=== PATIENT | male | born 1995 | race Caucasian/White ===

== ENCOUNTER 2019-07-08 19:31 | Emergency (ER) | payer BC ==
--- OUTSIDE RECORDS SUMMARY | 2019-07-08 19:39 | XMS REPORT | Continuity of Care Document ---
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 Allergies, Adverse Reactions, Alerts Active Allergies Reaction Severity Comments Date Penicillin hives 07/11/2018 Medications Active Medications SIG Qnty Indications Ordering Provider Date Dexcom G5 Mobile use with dexcom 2units Norm Olivas MD 03/14/2019 Transmitter Kit sensors [facility] Dexcom G5 Mobile/G4 dexcom g5, 12units Norm Olivas MD 09/22/2018 [place] Sensor Kit please one sensor every [facility] 7-10 days Freestyle Lite Test test blood sugar 100units Norm Olivas MD 07/11/2018 2 times daily Strips and as needed Humalog for use in 30ml Norm Olivas MD 07/11/2018 100Unit/ML insulin pump, up Solution to 100 units/day Advil 2 tabs by mouth Unknown 200mg Tablets as needed Medications Administered in Office Medication SIG Qnty Indications Ordering Provider Date Technetium TC 99M Terrance Mcdonough M.D., 06/19/2019 Tetrofosmin, Per Unit Dose [facility] Up To 40 Millicuries Injection Technetium TC 99M Terrance Mcdonough M.D., 06/19/2019 Tetrofosmin, Per Unit Dose FACC, FASNC Up To 40 Millicuries Injection Immunizations Description No Information Available Vital Signs Date Vital Result Comment 07/05/2019 4:30pm Height 71 inches 5'11" Weight 175.00 lb w/ o shoes Heart Rate 54 /min BP Systolic Sitting 113 mmHg BP Diastolic Sitting 75 mmHg BMI (Body Mass Index) 24.4 kg/m2 06/23/2019 12:33pm Height 71 inches 5'11" Weight 175.00 lb Heart Rate 56 /min BP Systolic Sitting 104 mmHg LA Regular Cuff BP Diastolic Sitting 70 mmHg LA Regular Cuff BP Systolic Standing 116 mmHg LA Regular Cuff BP Diastolic Standing 74 mmHg LA Regular Cuff Respiratory Rate 16 /min Pain Level 1 slight headache O2 % BldC Oximetry 98 % BMI (Body Mass Index) 24.4 kg/m2 Results Test Date Facility Test Result H/L Range Note Laboratory test 04/04/2019 [facility] Hemoglobin A1c 5.9 % High 4.0-5.[address] (Glyco HGB) [place] [address] [phone] Glucose 84 mg/dL Normal 70-100 C-Peptide 1.2 ng/mL 1.1 - 4.4 2 TSH (Thyroid Stim Horm) 3.20 mcIU/mL Normal 0.34-5.60 Urine Microalbumin 04/04/2019 [facility] Ur Microalbumin < 15.[address] (mg/L) mg/[place] [address] [phone] Urine Creatinine 28.01 mg/dL Urine Microalbumin/Creatinine TNP <31 3 1 Therapeutic target for the treatment of diabetes mellitus patients is <7% HBA1C, and in selective patients <6.0%. Please refer to [place] [employer] Association diabetic care guidelines for further information. 2 Test Performed by: [facility] [address] [place] [address] 3 Unable to calculate due to low microalbumin Procedures Date Code Description Status 06/23/2019 00871 EKG Tracing & Interpretation Completed 06/19/2019 11520 Stress Test Completed 06/19/2019 29227 Myocardial Perfusion Imaging Tomographic (Spect) Multiple Completed Studies 06/15/2019 01013 ECHO Transthoracic, Real-Time 2D With Doppler And Color Completed Flow 05/26/2019 19944 EKG Tracing & Interpretation Completed Medical Devices Description No Information Available Encounters Type Date Location Provider Dx Diagnosis Office Visit 06/23/2019 Cardiology Terrance Kirk R06.00 Dyspnea, 1:00p [facility] AT [facility] Mcdonough, unspecified [facility] R00.1 Bradycardia, unspecified Z82.49 Family hx of ischem heart dis and oth dis of the circ sys Office Visit 05/26/2019 1:30p Cardiology Terrancerenetta Kirk R06.00 Dyspnea, Services Of Vasquez Mcdonough M.D., unspecified AT [facility] Z82.49 Family hx of ischem heart dis and oth dis of the circ sys Office Visit 04/04/2019 [place] [facility] and Norm Olivas, E10.9 Type 1 diabetes 11:00a Endocrinology of MD mellitus without [facility] complications Z82.49 Family hx of ischem heart dis and oth dis of the circ sys Assessments Date Code Description Provider 07/05/2019 E10.9 Type 1 diabetes mellitus without Norm Olivas MD complications 06/23/2019 R06.00 Dyspnea, unspecified Terrance Mcdonough M.D., [facility], [facility] 06/23/2019 R00.1 Bradycardia, unspecified Terrance Mcdonough M.D., [facility], [facility] 06/23/2019 Z82.49 Family history of ischemic heart Terrance Mcdonough M.D., [facility], disease and other diseases of the [facility] circulatory system 06/19/2019 R06.00 Dyspnea, unspecified Terrance Mcdonough M.D., [facility], [facility] 06/15/2019 R06.00 Dyspnea, unspecified Terrance Mcdonough M.D., [facility], [facility] 06/15/2019 R06.00 Dyspnea, unspecified Traveling ECHO 2 05/26/2019 R06.00 Dyspnea, unspecified Terrance Mcdonough M.D., [facility], [facility] 05/26/2019 Z82.49 Family history of ischemic heart Terrance Mcdonough M.D., [facility], disease and other diseases of the [facility] circulatory system 04/04/2019 E10.9 Type 1 diabetes mellitus without Norm Olivas MD complications 04/04/2019 Z82.49 Family history of ischemic heart Norm Olivas MD disease and other diseases Plan of Treatment 07/05/2019 - Norm Olivas MDE10.9 Type 1 diabetes mellitus without complicationsNew Labs:Hemoglobin A1c (Glyco HGB), Scheduled: 12/13/19TSH ( Thyroid Stim Horm), Scheduled: 12/13/19Transglutaminase Igg & Iga, Scheduled : 12/13/19Comp Metabolic Panel, Scheduled: 12/13/19Lipid Profile (Trig/Chol/HDL) , Scheduled: 12/13/19Instructions:1. Sign up for patient portal. 2. Check fasting blood tests in December prior to next follow-up visit. 3. Return in 6 months for a follow-up. 4. Off-pump plan: Toujeo 10-12 units/day, Novolog 2-4 units/meal. Functional Status Description No Information Available Mental Status Description No Information Available Referrals Refer to Reason for Referral Status Appt Date Deirc Greene, DO, FACC Personal history of T1DM. Maternal Sent history of HOCM. [address] [place], [place] [address] [phone]
--- OUTSIDE RECORDS SUMMARY | 2019-07-08 19:39 | XMS REPORT | Continuity of Care Document ---
:1996 External Reference #:[id number] Author Name Terrance Mcdonough M.D., [facility] (transmitted by agent of provider Jolene Groves) Address 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 Allergies, Adverse Reactions, Alerts Active Allergies Reaction Severity Comments Date Penicillin hives 07/11/2018 Medications Active Medications SIG Qnty Indications Ordering Provider Date Dexcom G5 Mobile use with dexcom 2units Norm Olivas MD 03/14/2019 Transmitter Kit sensors [facility] Dexcom G5 Mobile/G4 dexcom g5, 12units Norm Olivas MD 09/22/2018 [place] Sensor Kit please one sensor every [facility] 7-10 days Freestyle Lite Test test blood [...] Mcdonough M.D., 06/19/2019 Tetrofosmin, Per Unit Dose [facility] Up To 40 Millicuries Injection Technetium TC 99M Terrance Mcdonough M.D., 06/19/2019 Tetrofosmin, Per Unit Dose FACC, FASNC Up To 40 Millicuries Injection Immunizations Description No Information Available Vital Signs Date Vital Result Comment 06/23/2019 12:33pm Height 71 inches 5'11" Weight [...] % BMI (Body Mass Index) 24.4 kg/m2 05/26/2019 1:08pm Height 71 inches 5'11" Weight 174.00 lb Heart Rate 52 /min BP Systolic 126 mmHg Ra Regular Cuff BP Diastolic 82 mmHg Ra Regular Cuff BP Systolic Sitting 108 mmHg LA Regular Cuff BP Diastolic Sitting 74 mmHg LA Regular Cuff BP Systolic Standing 130 mmHg LA Regular Cuff BP Diastolic Standing 72 mmHg LA Regular Cuff Respiratory Rate 12 /min no resp difficulties Pain Level 0 O2 % BldC Oximetry 99 % BMI (Body Mass Index) 24.3 kg/m2 Results Test Date Facility Test Result H/L Range Note Laboratory test 04/04/2019 [facility] Hemoglobin A1c 5.9 % High 4.0-5.[address] (Glyco HGB) [place] [address] [phone] Glucose 84 mg/dL Normal 70-100 C-Peptide 1.2 ng/mL 1.1 - 4.4 2 TSH (Thyroid Stim Horm) 3.20 mcIU/mL Normal 0.34-5.60 Urine Microalbumin 04/04/2019 [facility] Ur Microalbumin < 15.[address] (mg/L) mg/[place] [address] [phone] Urine Creatinine 28.01 mg/dL Urine Microalbumin/Creatinine TNP <31 3 1 Therapeutic target for the treatment of diabetes mellitus patients is <7% HBA1C, and in selective patients <6.0%. Please refer to [place] [employer] diabetic care guidelines for further information. 2 Test Performed by: [facility] [address] [place] [address] 3 Unable to calculate due to low microalbumin Procedures Date Code Description Status 06/19/2019 04321 Stress Test Completed 06/19/2019 45007 Myocardial Perfusion Imaging Tomographic (Spect) Multiple Completed Studies 06/15/2019 42081 ECHO Transthoracic, Real-Time 2D With Doppler And Color Completed Flow 05/26/2019 43285 EKG Tracing & Interpretation Completed Medical Devices Description No Information Available Encounters Type Date Location Provider Dx Diagnosis Office Visit 05/26/2019 Cardiology Terrance Kirk R06.00 Dyspnea, 1:30p [facility] Of [facility] AT [place] Mcdonough, unspecified [facility] Z82.49 Family hx of ischem heart dis and oth dis of the circ sys Office Visit 04/04/2019 [place] [facility] and Norm Olivas, E10.9 Type 1 diabetes 11:00a Endocrinology of MD mellitus without [facility] complications Z82.49 Family hx of ischem heart dis and oth dis of the [facility] sys Assessments Date Code Description Provider 06/23/2019 R06.00 Dyspnea, unspecified Terrance Reagan Mcdonough M.D., [facility] 06/19/2019 R06.00 Dyspnea, unspecified Terrance Reagan Mcdonough M.D., [facility] 06/15/2019 R06.00 Dyspnea, unspecified Terrance Reagan Mcdonough M.D., [facility] 06/15/2019 R06.00 Dyspnea, unspecified Traveling ECHO 2 05/26/2019 R06.00 Dyspnea, unspecified Terrance Mcdonough M.D., [facility] 05/26/2019 Z82.49 Family history of ischemic heart Terrance Mcdonough M.D., [facility], disease and other diseases of the [facility] circulatory system 04/04/2019 E10.9 Type 1 diabetes mellitus without Norm Olivas MD complications 04/04/2019 Z82.49 Family history of ischemic heart Norm Olivas MD disease and other diseases Plan of Treatment 06/23/2019 - Terrance Mcdonough M.D., [facility], MONUFC25.00 Dyspnea, unspecifiedComments:As discussed, your heart is doing very well including you do not have hypertrophic cardiomyopathy.Follow up:7 years Functional Status Description No Information Available Mental Status Description No Information Available Referrals Refer to Dr Reason for Referral Status Appt Date Deric Greene DO, [facility] Personal history of T1DM. Maternal Sent history of HOCM. [facility] [id number] [phone]
--- OUTSIDE RECORDS SUMMARY | 2019-07-08 19:39 | XMS REPORT | Continuity of Care Document ---
:1996 External Reference #:[id number] Author Name Terrance Mcdonough M.D., [facility], [facility] (transmitted by agent of provider Jolene Groves) Address [address] [place] [address] Problems Active Problems Provider Date Difficulty breathing Terrance Mcdonough M.D., [facility], [facility] Onset: 05/26/2019 Social History Type Date Description Comments Sex Unknown ETOH Use Occasionally consumes once a week alcohol Tobacco Use Start: Unknown Patient has never smoked Recreational Drug Use Denies Drug Use Smoking Status Reviewed: 05/26/19 Patient has never smoked Exercise Type/Frequency Exercises regularly run, aerobics, yoga and weight lifting, 4-5 days a week. Allergies, Adverse Reactions, Alerts Active Allergies Reaction Severity Comments Date Penicillin hives 07/11/2018 Medications Active Medications SIG Qnty Indications Ordering Provider Date Dexcom G5 Mobile use with dexcom 2units Norm Olivas MD 03/14/2019 Transmitter Kit sensors [facility] Dexcom G5 Mobile/G4 dexcom g5, 12units Norm Olivas MD 09/22/2018 [place] Sensor Kit please one sensor every [facility] 7-10 days Freestyle Lite Test test blood sugar 100units Norm Olivas MD 07/11/2018 2 times daily Strips and as needed Humalog for use in 30ml Norm Olivas MD 07/11/2018 100Unit/ML insulin pump, up Solution to 100 units/day Advil 2 tabs by mouth Unknown 200mg Tablets as needed Immunizations Description No Information Available Vital Signs Date Vital Result Comment 05/26/2019 1:08pm Height 71 inches 5'11" Weight [...] % BMI (Body Mass Index) 24.3 kg/m2 04/04/2019 11:11am Height 73 inches 6'1" Weight 173.00 lb w/ shoes Heart Rate 58 /min BP Systolic Sitting 118 mmHg BP Diastolic Sitting 84 mmHg BMI (Body Mass Index) 22.8 kg/m2 Results Test Date Facility Test Result H/L Range Note Laboratory test 04/04/2019 [facility] Hemoglobin A1c 5.9 % High 4.0-5.[address] (Glyco HGB) [place] [address] [phone] Glucose 84 mg/dL Normal 70-100 C-Peptide 1.2 ng/mL 1.1 - 4.4 2 TSH (Thyroid Stim Horm) 3.20 mcIU/mL Normal 0.34-5.60 Urine Microalbumin 04/04/2019 [facility] Ur Microalbumin < 15.[address] (mg/L) mg/[place] [address] [phone] Urine Creatinine 28.01 mg/dL Urine Microalbumin/Creatinine TNP <31 3 1 Therapeutic target for the treatment of diabetes mellitus patients is <7% HBA1C, and in selective patients <6.0%. Please refer to [place] Diabetes [employer] diabetic care guidelines for further information. 2 Test Performed by: [facility] [address] [place] [address] 3 Unable to calculate due to low microalbumin Procedures Date Code Description Status 05/26/2019 26447 EKG Tracing & Interpretation Completed Medical Devices Description No Information Available Encounters Type Date Location Provider Dx Diagnosis Office Visit 05/26/2019 Cardiology Services Terrance Kirk R06.00 Dyspnea, 1:30p Of [facility] AT Armond Mcdonough M.D., unspecified SNEHA MELO Office Visit 04/04/2019 [place] [facility] and Norm Olivas MD E10.9 Type 1 diabetes 11:00a Endocrinology of [facility] mellitus without complications Z82.49 Family hx of ischem heart dis and oth dis of the circ sys Assessments Date Code Description Provider 05/26/2019 R06.00 Dyspnea, unspecified Terrance Mcdonough M.D., SNE[facility] MELO 04/04/2019 E10.9 Type 1 diabetes mellitus without Norm Olivas MD complications 04/04/2019 Z82.49 Family history of ischemic heart Norm Olivas MD disease and other diseases Plan of Treatment Future Appointment(s):06/23/2019 1:00 pm - Terrance Mcdonough M.D., SNEHA MELO at [facility] AT Fdkzwvdx65/07/2019 9:45 am - Terrance Mcdonough M.D., SNEHA MELO at [place] [facility]06/02/2019 3:30 pm - Traveling ECHO 2 at [facility] AT Zoflhgsl36/23/2019 4:20 pm - Norm Olivas MD at [place] [facility]05/26/2019 - Terrance Mcdonough M.D., [facility], TKKHHB13.00 Dyspnea, unspecifiedNew Orders:Stress Test, Exercise Nuclear, Scheduled: 06/19/19Echocardiogram, Scheduled: 06/02/19Comments :As discussed, we will further evaluate your heart.Follow up:after TOE and NEM Functional Status Description No Information Available Mental Status Description No Information Available Referrals Refer to Reason for Referral Status Appt Date Deric Greene, , [facility] Personal history of T1DM. Maternal Sent history of HOCM. [address] [place] [address] [phone]
[2019-07-08 19:52] VITALS: BP 109/66
--- NOTE | 2019-07-08 20:06 | UC ---
Skin Complaint HPI - HPI Summary HPI Summary: The patient is a 24-year-old male with type 1 diabetes who removed his insulin pump from his left upper arm about 5 days ago. Soon after that the area became tender red and swollen. His symptoms of worsening daily. He has not had a fever. He denies any history of skin infection including MRSA. - History of Current Complaint Chief Complaint: UCSkin Time Seen by Provider: 07/08/19 19:47 Stated Complaint: SKIN ISSUE Hx Obtained From: Patient Onset/Duration: Gradual Onset, Lasting Weeks Timing: Constant Onset Severity: Mild Current Severity: Mild Pain Intensity: 3 Pain Scale Used: 0-10 Numeric Location: Discrete Character: Swelling, Redness, Painful Aggravating Factor(s): Touch Alleviating Factor(s): Nothing Associated Signs & Symptoms: Positive: Tenderness - Allergy/Home Medications Allergies/Adverse Reactions: Allergies Allergy/AdvReac Type Severity Reaction Status Date / Time Penicillins Allergy Severe Hives Verified 07/08/19 19:53 Home Medications: Home Medications Insulin LISPRO* [HumaLOG*] 0 units SUBCUT DIRECTED 07/08/19 [History Confirmed 07/08/19] PMH/Surg Hx/FS Hx/Imm Hx Previously Healthy: Yes Endocrine History: Diabetes - Surgical History Surgical History: Yes Surgery Procedure, Year, and Place: wisdom teeth. tubes to ears - Family History Known Family History: Positive: Hypertension - Social History Alcohol Use: None Substance Use Type: None Smoking Status (MU): Never Smoked Tobacco Review of Systems All Other Systems Reviewed And Are Negative: Yes Constitutional: Positive: Negative Skin: Positive: Other - see hpi Eyes: Positive: Negative ENT: Positive: Negative Respiratory: Positive: Negative Cardiovascular: Positive: Negative Gastrointestinal: Positive: Negative Genitourinary: Positive: Negative Motor: Positive: Negative Neurovascular: Positive: Negative Musculoskeletal: Positive: Other: - see image Neurological: Positive: Negative Psychological: Positive: Negative Physical Exam Triage Information Reviewed: Yes Appearance: Well-Appearing, No Pain Distress, Well-Nourished Vital Signs: Initial Vital Signs Temp 99.2 F 07/08/19 19:44 Pulse 60 07/08/19 19:44 Resp 15 07/08/19 19:44 BP 109/66 07/08/19 19:44 Pulse Ox 99 07/08/19 19:44 Vital Signs Reviewed: Yes Eyes: Positive: Conjunctiva Clear ENT: Positive: Hearing grossly normal. Negative: Nasal congestion, Nasal drainage, Trismus, Muffled voice, Dental tenderness Neck: Positive: Supple, Nontender, No Lymphadenopathy Respiratory: Positive: Lungs clear, Normal breath sounds, No respiratory distress, No accessory muscle use Cardiovascular: Positive: RRR, No Murmur Musculoskeletal: Positive: Strength Intact, ROM Intact Neurological: Positive: Alert Psychological Exam: Normal Skin Exam: Other - see image Images Front/Back of Body, Lg ([place]): 1 - red/indurated, not fluctuant Course/Dx - Diagnoses Provider Diagnosis: Cellulitis of left upper arm Discharge ED - Sign-Out/Discharge Documenting (check all that apply): Patient Departure All imaging exams completed and their final reports reviewed: No Studies - Discharge Plan Condition: Stable Disposition: HOME Prescriptions: Cephalexin CAP* [Keflex CAP*] 500 mg PO QID #28 cap Patient Education Materials: Cellulitis (ED) Referrals: No Primary Care Phys,NOPCP [Primary Care Provider] - Additional Instructions: recheck in three days if not improved for new or worsening symptoms go to the ER - Billing Disposition and Condition Condition: STABLE Disposition: Home
[2019-07-08] MEDS ORDERED: Cephalexin CAP* 500 MG PO ONE ×2 (20:07)
== END 2019-07-08 20:30 | disposition home or self-care (01) ==
LOC: UCEAST 19:31
DX: L03.114 Cellulitis of left upper limb (principal); E10.9 Type 1 diabetes mellitus without complications; Z88.0 Allergy status to penicillin
CPT/HCPCS: 99212; A9270-GY; G0463